=== PATIENT | female | born 1940 | race Caucasian/White ===

== ENCOUNTER 2017-03-28 10:09 | Emergency (ER) | payer OTHER ==
[2017-03-28] MEDS ORDERED: MECLIZINE HCL 25 MG TABLET PO ONE (10:50)
[2017-03-28] MEDS ORDERED: 0.9 % SODIUM CHLORIDE 500 ML IV ONE ×2 (10:50→11:58)
--- NOTE | 2017-03-28 11:01 | ED Physician Documentation ---
Headache - HISTORIAN Historian: patient - HPI Stated Complaint: headache Chief Complaint: Headache Additional Information: Multiple complaints such as increased shaking, nausea, dizziness and sleps a lot. Not drinking fluids. Onset: days ago (14) Timing: still present New Gradual Onset: Yes Exposure To: none Severity: moderate Quality: other (falling forward but has seth doing this for years) Associated Symptoms: sweating, nausea, weakness, dizziness, other (muscle tremors). denies: fever, chills Preceding Symptoms: denies: visual disturbance, scotoma, typical of prior aura(s ) Exacerbated By: denies: light, noise, movement Further Comments: no - ROS NEURO/PSYCH: anxiety EYES/ENT: other (feels like there is something in her head). denies: sore throat, difficulty swallowing, sinus pain, drainage CVS/RESP: none GI/: abdominal pain (generalized, hx of chronic constipation) MS/SKIN/LYMPH: denies: muscle aches, back pain, rash, skin lesions, swollen glands all systems neg except as marked: Yes - PAST HX Medical History: hypertension, other (hypothyroidism) Surgical History: other (hysterectomy, ortho surgery) Immunizations: referred to PCP Allergies/Adverse Reactions: Allergies Allergy/AdvReac Type Severity Reaction Status Date / Time No Known Allergies Allergy Verified 03/28/17 11:32 Home Medications: Ambulatory Orders Medication Instructions Recorded Cholecalciferol (Vitamin D3) 5,000 units PO DAILY 03/28/17 [Vitamin D3] Lactobacillus Acidophilus 1 tab PO DAILY 03/28/17 [Acidophilus] Levothyroxine Sodium [Synthroid] 25 mcg PO DAILY 03/28/17 - SOCIAL HX Smoking History: non-smoker Alcohol Use: none Drug Use: none - Family HX Family History: none - VITAL SIGNS Vital Signs: Vital Signs Temp Pulse Resp BP Pulse Ox 98 F 70 22 142/43 98 03/28/17 10:15 03/28/17 10:15 03/28/17 10:15 03/28/17 10:15 03/28/17 10:15 - REVIEWED ASSESSMENTS Nursing Assessment Reviewed: Yes Vitals Reviewed: Yes Progress - Results/Orders Results/Orders: cbc, cmp, ua, uds, etoh, trop, bnp, ct head, ct sinuses, aas ordered - Progress Progress: pt. given 2 boluses of 500 cc NS IV, 30 mg Toradol and 1 gram Rocephin IVPB, meclizine 25 mg p.o. and 8 mg Zophran ivp in ER Critical Care Note - Critical Care Note Total Time (mins): 0 ED Results Lab/Radiology - Lab Results Lab Results: Lab Results 03/28/17 03/28/17 03/28/17 11:30 11:30 10:55 WBC RBC Hgb Hct MCV MCH MCHC RDW Plt Count Neut % (Auto) Lymph % (Auto) [place] % (Auto) Eos % (Auto) Baso % (Auto) Neut # (Auto) Lymph # (Auto) [place] # (Auto) Eos # (Auto) Baso # (Auto) Reactive Lymphs % Reactive Lymphs # PT 10.4 Seconds Seconds (9.4-11.6) INR 0.99 (0.9-1.2) APTT 24.0 Seconds L Seconds (24.5-32.8) Sodium Potassium Chloride Carbon Dioxide BUN Creatinine Est GFR ( Amer) Est GFR (Non-Af Amer) Glucose Calcium Total Bilirubin AST ALT Alkaline Phosphatase Total Protein Albumin Urine Color Yellow (YELLOW) Urine Appearance Slightly cloudy (CLEAR) Urine pH 6.0 (5.0 - 8.0) Ur Specific [place] 1.015 (1.010-1.030) Urine Protein Negative mg/dL mg/dL (NEGATIVE) Urine Ketones Negative mg/dL mg/dL (NEGATIVE) Urine Occult Blood Trace-lysed (NEGATIVE) Urine Nitrite Positive (NEGATIVE) Urine Bilirubin Negative (NEGATIVE) Urine Urobilinogen 0.2 Eu Eu (0.2-1.0) Ur Leukocyte Esterase 2+ H (NEGATIVE) Urine RBC 0-2 (0-2 HPF) Urine WBC 10-25 H (0-5 HPF) Urine WBC Clumps Present H (NEGATIVE) Urine Bacteria Moderate H (NEGATIVE) Urine Glucose Negative mg/dL mg/dL (NEGATIVE) Opiates Screen Negative ng/mL ng/mL (<300) Oxycodone Screen Negative ng/mL ng/mL (<100) Methadone Screen Negative ng/mL ng/mL (<200) Ur Barbiturates Screen Negative ng.mL ng.mL (<200) Tricyclic Antidepress Negative ng/mL ng/mL (<300) Phencyclidine Screen Negative ng/mL ng/mL (< 25) Amphetamines Screen Negative ng/mL ng/mL (<500) U Methamphetamines Scrn Negative ng/mL ng/mL (<500) MDMA Negative ng/mL ng/mL (<500) Benzodiazepines Screen Negative ng/mL ng/mL (<150) Urine Cocaine Screen Negative ng/mL ng/mL (<150) U Cannabinoids Screen Negative ng/mL ng/mL (< 50) Ethyl Alcohol 03/28/17 03/28/17 10:55 10:55 WBC 6.40 K/ul K/ul (4.00-12.00) RBC 3.59 M/ul L M/ul (3.90-5.20) Hgb 12.2 g/dL g/dL (12.0-16.0) Hct 35.7 % % (34.5-46.5) MCV 99.3 fl fl (80.0-100.0) MCH 33.9 pg pg (28.0-34.0) MCHC 34.1 g/dL g/dL (30.0-36.0) RDW 13.5 % % (11.3-14.3) Plt Count 219 K/mm3 K/mm3 (130-400) Neut % (Auto) 60.1 % % (39.0-79.0) Lymph % (Auto) 31.5 % % (16.0-50.0) [place] % (Auto) 3.8 % % (0.0-11.0) Eos % (Auto) 2.1 % % (0.0-6.8) Baso % (Auto) 0.6 (0.0-1.5) Neut # (Auto) 3.8 # k/uL # k/uL (1.4-7.7) Lymph # (Auto) 2.0 # k/uL # k/uL (0.6-4.0) [place] # (Auto) 0.2 # k/uL # k/uL (0.0-0.9) Eos # (Auto) 0.1 # k/uL # k/uL (0.0-0.6) Baso # (Auto) 0.0 # k/uL # k/uL (0.0-0.5) Reactive Lymphs % 1.9 % % (0.0-5.0) Reactive Lymphs # 0.1 # k/uL # k/uL (0.0-0.8) PT INR APTT Sodium 138 mmol/L mmol/L (136-145) Potassium 4.3 mmol/L mmol/L (3.5-5.1) Chloride 102 mmol/L mmol/L (98-107) Carbon Dioxide 25 mmol/L mmol/L (22-30) BUN 35 mg/dL H mg/dL (7-17) Creatinine 2.10 mg/dL H mg/dL (0.52-1.04) Est GFR ( Amer) 29 L (60 - ) Est GFR (Non-Af Amer) 24 L (60 - ) Glucose 130 mg/dL H mg/dL (74-106) Calcium 9.3 mg/dL mg/dL (8.4-10.2) Total Bilirubin 0.4 mg/dL mg/dL (0.2-1.3) AST 33 U/L U/L (15-46) ALT 26 U/L U/L (13-69) Alkaline Phosphatase 105 U/L U/L (38-126) Total Protein 7.3 g/dL g/dL (6.3-8.2) Albumin 4.0 g/dL g/dL (3.5-5.0) Urine Color Urine Appearance Urine pH Ur Specific [place] Urine Protein Urine Ketones Urine Occult Blood Urine Nitrite Urine Bilirubin Urine Urobilinogen Ur Leukocyte Esterase Urine RBC Urine WBC Urine WBC [place] Urine Bacteria Urine Glucose Opiates Screen Oxycodone Screen Methadone Screen Ur Barbiturates Screen Tricyclic Antidepress Phencyclidine Screen Amphetamines Screen U Methamphetamines Scrn MDMA Benzodiazepines Screen Urine Cocaine Screen U Cannabinoids Screen Ethyl Alcohol < 10.0 mg/dL mg/dL (0.0-10.0) - Radiology Radiology Impressions: ct head neg, ct sinuses, neg, aas prominent stool - Orders Orders: ED Orders Category Date Time Status Place IV Lock 1T Care 03/28/17 10:50 Active ABD SERIES PA CHEST [RAD] Stat Exams 03/28/[address] BRAIN W/O CONTRAST Stat Exams 03/28/[address] MAXILLOFACIAL W/O DYE Routine Exams 03/28/17 Ordered ALCOHOL MEDICAL USE ONLY Routine Lab 03/28/17 10:55 Completed CBC/PLATELET/DIFF Routine Lab 03/28/17 10:55 Completed CMP Routine Lab 03/28/17 10:55 Completed DRUG SCREEN URINE MEDICAL ONLY Routine Lab 03/28/17 11:30 Completed NT-proBNP Routine Lab 03/28/17 10:55 Received PT-INR Routine Lab 03/28/17 10:55 Completed PTT Routine Lab 03/28/17 10:55 Completed TROPONIN I (cTnI) Routine Lab 03/28/17 10:55 Received URINALYSIS Routine Lab 03/28/17 11:30 Completed URINE CULTURE Routine Lab 03/28/17 11:30 Received 0.9 % Sodium Chloride [Normal Saline] 500 ml Med 03/28/17 10:50 Discontinued IV NOW 0.9 % Sodium Chloride [Normal Saline] 500 ml Med 03/28/17 11:58 Discontinued IV NOW 0.9 % Sodium Chloride [Sodium Chloride] 100 ml Med 03/28/17 12:05 Discontinued IV .STK-MED Ketorolac Tromethamine [Toradol] Med 03/28/17 12:35 Discontinued 30 mg IVP NOW ONE Meclizine HCl [Antivert] Med 03/28/17 10:50 Discontinued 25 mg PO NOW ONE Ondansetron HCl/Pf [Zofran 4 mg/2 ml] Med 03/28/17 11:32 Discontinued 8 mg .ROUTE .STK-MED ONE Ondansetron HCl/Pf [Zofran 4 mg/2 ml] Med 03/28/17 11:33 Discontinued 8 mg IVP NOW ONE cefTRIAXone SODIUM ADVANTAGE [Rocephin Advantage] 1 gm Med 03/28/17 11:58 Discontinued Normal Saline Add-[place] [Sodium Chloride] 50 ml IV NOW cefTRIAXone SODIUM [Rocephin] Med 03/28/17 12:05 Discontinued 1 gm .ROUTE .STK-MED ONE EKG WITH COMPARISON Routine Ther 03/28/17 Ordered Headache Physical Exam - EXAM General Appearance: no acute distress, alert EENT: no facial swelling, eyes nml inspection, PERRL Neck: normal inspection, thyroid normal, supple Respiratory: no resp distress, chest non-tender, breath sounds normal CVS: reg. rate & rhythm, heart sounds nml Abdomen: tenderness (generalized) Skin: color nml, no rash. No: cyanosis, diaphoresis, pallor Extremitites: non-tender, normal range of motion, no evidence of injury, no edema - NEURO/PSYCH Higher Functions: alert (speaks of a cicle in her head that has a screw and is held by a string and she can see scissors cutting the string which is bizzare but the rest of her mental status is normal), oriented x3, mood/affect nml Cranial: nml as tested, no evidence of acute CVA Cerebellar: nml as tested Sensorimotor: motor nml, sensation nml. denies: weakness, aphasia Discharge Clincal Impression: Dehydration, mild UTI (urinary tract infection) Qualifiers: Urinary tract infection type: acute cystitis Hematuria presence: without hematuria Qualified Code(s): N30.00 - Acute cystitis without hematuria Referrals: Mervat Lizama MD [Primary Care Provider] - 2 Days Comments: Discharged in stable condition after 1 liter NS and 1 gram Rocephin IVP with scripts for Bactrim DS #20 1 p.o. bid, meclizine 1 p.o. tid #21 and Lisinopril 20 mg 1 p.o. bid. Pt. to increase fluids, stop lisinpril/hct secondary to renal insufficiency/dehydration, stop Nyquil. Condition: Stable Disposition: 01 HOME, SELF-CARE Decision to Admit: NO Decision Time: 12:45
[2017-03-28 11:05] LABS: BASOPHILS % 0.6 (0.0-1.5); EOSINOPHILS % 2.1 % (0.0-6.8); MEAN CORPUSCULAR HEMOGLOBIN 33.9 pg (28.0-34.0); MEAN CORPUSCULAR VOLUME 99.3 fl (80.0-100.0); MONOCYTES % 3.8 % (0.0-11.0); NEUTROPHILS # 3.8 # k/uL (1.4-7.7)
[2017-03-28 11:09] LABS: eGFR (African) 29; eGFR (Non-African) 24
[2017-03-28] MEDS ORDERED: ONDANSETRON HCL/PF 4 MG/ 2ML VIAL ONE (11:32)
[2017-03-28] MEDS ORDERED: ONDANSETRON HCL/PF 4 MG/ 2ML VIAL IVP ONE (11:33)
[2017-03-28 11:35] LABS: APPEARANCE,URINE Slightly Cloudy (CLEAR); COLOR,URINE Yellow (YELLOW); OCCULT BLOOD,URINE Trace-lysed (NEGATIVE); UROBILINOGEN URINE 0.2 Eu (0.2-1.0)
[2017-03-28 11:41] LABS: CANNABINOIDS NEGATIVE ng/mL (< 50); METHYLENEDIOXYMETHAMPHETAMINE NEGATIVE ng/mL (<500)
[2017-03-28] MEDS ORDERED: cefTRIAXone SODIUM ADVANTAGE 1 GM in NORMAL SALINE ADD-VANTAGE 50 ML IV ONE (11:58)
[2017-03-28] MEDS ORDERED: 0.9 % SODIUM CHLORIDE 100 ML IV ONE (12:05)
[2017-03-28] MEDS ORDERED: cefTRIAXone SODIUM 1 GM VIAL ONE (12:05)
[2017-03-28] MEDS ORDERED: KETOROLAC TROMETHAMINE 30 MG/1ML VIAL IVP ONE (12:35)
[2017-03-28 14:02] VITALS: BP 147/57
--- NOTE | 2017-03-28 15:18 | Diagnostic Imaging Report ---
ANDREINA SALDANA [facility] [address] [facility] [address] [place] [address]. [id number] Report Submission Date: Mar 28, 2017 12:00:46 PM [employer] Patient Study Name: BISHOP CRUZ Date: Mar 28, 2017 11:19:21 AM [employer] Modality Type: CR Gender: F Description: ABDOMEN,CHEST : 40 Institution: [facility] Physician: ANDREINA SALDANA Examination: Obstruction series History: Abdominal discomfort Findings: 4 views obtained of the chest and abdomen. Single view of the chest without focal infiltrative process. Cardiac silhouette not enlarged. No abnormal dilation of the large or small bowel. Air and stool throughout the large bowel. No suspicious calcification projecting over the renal fossa or the lower pelvic region. Lower lumbar laminectomy and fixation hardware. Right upper abdominal surgical clips. Impression: No focal consolidation. Large bowel stool. No obstruction. No suspicious calcifications by plain film sensitivity. Electronically signed on Mar 28, 2017 12:00:46 PM [employer] HARVESTER by: Tommy MARTIN
--- NOTE | 2017-03-28 15:21 | Diagnostic Imaging Report ---
ANDREINA SALDANA [facility] [address] [facility] [address] [place], [place]. [address] Report Submission Date: Mar 28, 2017 11:45:22 AM [employer] Patient Study Name: BISHOP CRUZ Date: Mar 28, 2017 11:00:27 AM [employer] Modality Type: CT\SR Gender: F Description: CT MAXILLOFACIAL W/O D : 40 Institution: [facility] Physician: ANDREINA SALDANA Examination: CT Sinuses/maxillofacial History: Sinus pressure Comparison exams: None available Technique: Axial imaging with sagittal and coronal reconstruction. Findings: Maxillary, frontal, ethmoid, and sphenoid sinuses are clear. Ostiomeatal units are patent bilaterally. Medial and inferior orbital gibson are intact. Anterior and posterior maxillary gibson are also intact. Zygomatic arches without fracture. No nasal bone abnormality. Mandibles including the mandibular condyle are without irregularity. Streak artifact from dental hardware. Remaining visualized osseous and soft tissue structure within normal limits. Impression: No abnormal mucus thickening. No air fluid level. No orbital, nasal, mandibular or maxillary bone fractures Electronically signed on Mar 28, 2017 11:45:22 AM [employer] by: Tommy MARTIN
--- NOTE | 2017-03-28 15:22 | Diagnostic Imaging Report ---
ANDREINA SALDANA [facility] [address] [facility] [address] [place], [place]. [address] Report Submission Date: Mar 28, 2017 11:40:38 AM SENIOR UI DESIGNER Patient Study Name: BISHOP CRUZ Date: Mar 28, 2017 10:56:47 AM SENIOR UI DESIGNER Modality Type: CT\SR Gender: F Description: CT BRAIN W/O CONTRAST : 40 Institution: [facility] Physician: ANDREINA SALDANA Examination: CT head without contrast History: Vertigo Comparison exam: None available Technique: Noncontrast head CT protocol. Findings: Ventricles and sulci are consistent for patient age. Cerebrocerebellar parenchyma demonstrates mild periventricular low attenuation consistent with small vessel disease. No evidence for parenchymal hemorrhage. No evidence for mass or mass effect. No midline shift. No extra axial fluid collections. Partial visualization of the paranasal sinuses, mastoid air cells, orbits, skull and scalp without gross irregularity. Impression: Mild age related changes. No acute parenchymal process. No hemorrhage. Electronically signed on Mar 28, 2017 11:40:38 AM SENIOR UI DESIGNER by: Tommy MARTIN
== END 2017-03-28 13:15 | disposition home or self-care (01) ==
LOC: ED 10:09
DX: E86.0 Dehydration (principal); N30.00 Acute cystitis without hematuria
CPT/HCPCS: 70450; 70486; 74022; 80053; 80377; 81002; 83880; 84484; 85025; 85610; 85730; 87086; 87186; 93005; 96360; 96361; 96375; 99283; 99284; J0696; J1885; J2405; J7060; 80320; G0480; G0481; S1016

== ENCOUNTER 2018-10-13 07:30 | Outpatient (CLI) | payer OTHER ==
[2018-08-16 23:41] VITALS: BP 109/92
== END 2018-10-13 07:32 ==
LOC: LAB 07:30
PROVIDERS: ATTEND Family Medicine
DX: E78.5 Hyperlipidemia, unspecified (principal); I10 Essential (primary) hypertension
CPT/HCPCS: 80061

== ENCOUNTER 2018-12-04 14:15 | Outpatient (CLI) | payer OTHER ==
[2018-08-16 23:41] VITALS: BP 109/92
[2018-12-04 15:42] LABS: BASOPHILS % 0.3 % (0.0-1.5); NEUTROPHILS # 4.6 # k/uL (1.4-7.7)
[2018-12-04 15:43] LABS: eGFR (Non-African) 32
== END 2018-12-04 14:17 ==
LOC: LAB 14:15
PROVIDERS: ATTEND Internal Medicine Cardiovascular Disease
DX: I10 Essential (primary) hypertension (principal); E78.5 Hyperlipidemia, unspecified; I48.0 Paroxysmal atrial fibrillation
CPT/HCPCS: 36415; 80053; 83880; 84443; 85025

== ENCOUNTER 2018-12-09 17:03 | Outpatient (CLI) | payer OTHER ==
[2018-08-16 23:41] VITALS: BP 109/92
== END 2018-12-09 17:05 ==
LOC: LABRHC 17:03
PROVIDERS: ATTEND Family Medicine
DX: R71.8 Other abnormality of red blood cells (principal); E55.9 Vitamin D deficiency, unspecified
CPT/HCPCS: 82306; 82607; 82728; 82746

== ENCOUNTER 2019-01-01 12:01 | Outpatient (CLI) | payer OTHER ==
[2018-08-16 23:41] VITALS: BP 109/92
== END 2019-01-01 12:03 ==
LOC: LABRHC 12:01
PROVIDERS: ATTEND Family Medicine
DX: R56.9 Unspecified convulsions (principal)
CPT/HCPCS: 36415; 80164